=== PATIENT | female | born 1985 ===

== ENCOUNTER 2018-09-05 13:49 | Inpatient (IN) | payer OTHER ==
[2018-09-05] MEDS ORDERED: NACL 0.9% 1000 ML 1,000 ML IV ONE ×2 (14:12→18:11)
[2018-09-05] MEDS ORDERED: ZOFRAN IV ONE (14:12)
[2018-09-05] MEDS ORDERED: ANTIVERT PO ONE (14:41)
--- NOTE | 2018-09-05 14:43 | Emergency Department Report ---
HPI <NORAJeffJOSE Jaleesa - Last Filed: 09/05/18 23:14> - HPI HPI: 32-year-old female presents to the emergency department via EMS from home with a complaint of dizziness, nausea and vomiting that started earlier this morning. She denies any vision change, slurred speech, chest pain, shortness of breath, fever. She denies any significant past medical history. She received 4 mg of Zofran in route with EMS but otherwise did not take anything for her symptoms prior to arrival. She says that the dizziness is more like a vertigo-type symptom with the room spinning. No recent travel or sick contacts at home. <KRISTEN LUNA S - Last Filed: 09/06/18 15:57> - General Chief Complaint: Nausea/Vomiting/Diarrhea Time Seen by Provider: 09/05/18 14:06 ED Past Medical Hx <JOSE REMY Jaleesa - Last Filed: 09/05/18 23:14> - Surgical History Additional Surgical History: x2 - Social History Smoking Status: Never Smoker Substance Use Type: None <KRISTEN LUNA Kerrie - Last Filed: 09/06/18 15:57> - Medications Home Medications: Home Medications Medication Instructions Recorded Confirmed Last Taken Type No Known Home Medications [No 09/06/18 09/06/18 Unknown History Reported Home Medications] ED Review of Systems ROS: Stated complaint: DIZZY/VOMITING Other details as noted in HPI <JOSE REMY Jaleesa - Last Filed: 09/05/18 23:14> ROS: Stated complaint: DIZZY/VOMITING Other details as noted in HPI Comment: All other systems reviewed and negative Constitutional: denies: chills, fever Eyes: denies: eye pain, eye discharge, vision change ENT: denies: ear pain, throat pain Respiratory: denies: cough, shortness of breath, wheezing Cardiovascular: denies: chest pain, palpitations Gastrointestinal: nausea, vomiting. denies: abdominal pain, diarrhea Genitourinary: denies: urgency, dysuria, discharge Musculoskeletal: denies: back pain, arthralgia Skin: denies: rash, lesions Neurological: vertigo, other (dizziness). denies: weakness <KRISTEN LUNA S - Last Filed: 09/06/18 15:57> Physical Exam - Physical Exam Vital Signs: Vital Signs 1009/05/18 09/05/18 14:11 15:01 16:31 Temperature 97.8 F Pulse Rate 76 85 72 Respiratory 20 16 18 Rate Blood Pressure 156/70 Blood Pressure 159/92 133/68 [Right] O2 Sat by Pulse 99 100 100 Oximetry 09/05/18 09/05/18 09/05/18 16:52 16:54 16:56 Temperature Pulse Rate Respiratory Rate Blood Pressure 133/68 133/68 133/68 Blood Pressure [Right] O2 Sat by Pulse 100 100 99 Oximetry 09/05/18 09/05/18 09/05/18 16:58 17:00 17:01 Temperature Pulse Rate Respiratory Rate Blood Pressure 133/68 133/68 153/83 Blood Pressure [Right] O2 Sat by Pulse 100 100 100 Oximetry 09/05/18 09/05/18 09/05/18 17:02 17:04 17:06 Temperature Pulse Rate Respiratory Rate Blood Pressure 153/83 153/83 153/83 Blood Pressure [Right] O2 Sat by Pulse 100 100 100 Oximetry 09/05/18 09/05/18 09/05/18 17:08 17:10 17:12 Temperature Pulse Rate Respiratory Rate Blood Pressure 153/83 153/83 153/83 Blood Pressure [Right] O2 Sat by Pulse 100 100 100 Oximetry 09/05/18 09/05/18 09/05/18 17:14 17:16 17:18 Temperature Pulse Rate Respiratory Rate Blood Pressure 153/83 153/83 153/83 Blood Pressure [Right] O2 Sat by Pulse 100 100 100 Oximetry 09/05/18 09/05/18 09/05/18 17:20 17:22 17:24 Temperature Pulse Rate Respiratory Rate Blood Pressure 153/83 153/83 153/83 Blood Pressure [Right] O2 Sat by Pulse 100 100 100 Oximetry 09/05/18 09/05/18 09/05/18 17:26 17:28 17:30 Temperature Pulse Rate Respiratory Rate Blood Pressure 153/83 153/83 153/83 Blood Pressure [Right] O2 Sat by Pulse 100 100 100 Oximetry 09/05/18 09/05/18 09/05/18 17:31 17:32 17:34 Temperature Pulse Rate 63 Respiratory 18 Rate Blood Pressure 163/75 163/75 163/75 Blood Pressure 165/75 [Right] O2 Sat by Pulse 100 99 100 Oximetry 09/05/18 09/05/18 09/05/18 17:36 17:38 17:40 Temperature Pulse Rate Respiratory Rate Blood Pressure 163/75 163/75 163/75 Blood Pressure [Right] O2 Sat by Pulse 100 100 100 Oximetry 09/05/18 09/05/18 09/05/18 17:42 17:44 17:46 Temperature Pulse Rate Respiratory Rate Blood Pressure 163/75 163/75 163/75 Blood Pressure [Right] O2 Sat by Pulse 100 97 100 Oximetry 09/05/18 09/05/18 09/05/18 17:48 17:50 17:52 Temperature Pulse Rate Respiratory Rate Blood Pressure 163/75 163/75 163/75 Blood Pressure [Right] O2 Sat by Pulse 100 100 100 Oximetry 09/05/18 09/05/18 09/05/18 17:54 18:56 18:58 Temperature Pulse Rate 61 Respiratory 18 Rate Blood Pressure 163/75 163/75 137/67 Blood Pressure 136/67 [Right] O2 Sat by Pulse 100 100 100 Oximetry 09/05/18 09/05/18 09/05/18 19:00 19:01 19:02 Temperature Pulse Rate Respiratory Rate Blood Pressure 137/67 130/65 130/65 Blood Pressure [Right] O2 Sat by Pulse 100 100 99 Oximetry 09/05/18 09/05/18 09/05/18 19:04 19:06 19:08 Temperature Pulse Rate Respiratory Rate Blood Pressure 130/65 130/65 130/65 Blood Pressure [Right] O2 Sat by Pulse 100 100 100 Oximetry 09/05/18 09/05/18 09/05/18 19:10 19:12 19:14 Temperature Pulse Rate Respiratory Rate Blood Pressure 130/65 130/65 163/75 Blood Pressure [Right] O2 Sat by Pulse 100 100 100 Oximetry <JOSE REMY K - Last Filed: 09/05/18 23:14> - Physical Exam Vital Signs: Vital Signs 09/05/18 14:11 Temperature 97.8 F Pulse Rate 76 Respiratory 20 Rate Blood Pressure 156/70 O2 Sat by Pulse 99 Oximetry Physical Exam: GENERAL: The patient is well-developed well-nourished. HEENT: Normocephalic. Atraumatic. Patient has moist mucous membranes. EYES: Extraocular motions are intact. Pupils are equal and reactive to light bilaterally. Patient has significant horizontal nystagmus. It appears sustained towards the right but fatigable to the left. NECK: Supple. Trachea is midline. CHEST/LUNGS: Clear to auscultation. There is no respiratory distress noted. HEART/CARDIOVASCULAR: Regular. There is no tachycardia. There is no gallop rub or murmur. ABDOMEN: Abdomen is soft, nontender. Patient has normal bowel sounds. There is no abdominal distention. SKIN: Skin is warm and dry. NEURO: The patient is awake, alert, and oriented. The patient is cooperative. The patient has no focal neurologic deficits. The patient has normal speech. Cranial nerves II through XII grossly intact. MUSCULOSKELETAL: There is no tenderness or deformity. There is no limitation range of motion. There is no evidence of acute injury. <KRISTEN LUNA S - Last Filed: 09/06/18 15:57> ED Course Vital Signs 09/05/18 09/05/18 09/05/18 14:11 15:01 16:31 Temperature 97.8 F Pulse Rate 76 85 72 Respiratory 20 16 18 Rate Blood Pressure 156/70 Blood Pressure 159/92 133/68 [Right] O2 Sat by Pulse 99 100 100 Oximetry 09/05/18 09/05/18 09/05/18 16:52 16:54 16:56 Temperature Pulse Rate Respiratory Rate Blood Pressure 133/68 133/68 133/68 Blood Pressure [Right] O2 Sat by Pulse 100 100 99 Oximetry 09/05/18 09/05/18 09/05/18 16:58 17:00 17:01 Temperature Pulse Rate Respiratory Rate Blood Pressure 133/68 133/68 153/83 Blood Pressure [Right] O2 Sat by Pulse 100 100 100 Oximetry 09/05/18 09/05/18 09/05/18 17:02 17:04 17:06 Temperature Pulse Rate Respiratory Rate Blood Pressure 153/83 153/83 153/83 Blood Pressure [Right] O2 Sat by Pulse 100 100 100 Oximetry 09/05/18 09/05/18 09/05/18 17:08 17:10 17:12 Temperature Pulse Rate Respiratory Rate Blood Pressure 153/83 153/83 153/83 Blood Pressure [Right] O2 Sat by Pulse 100 100 100 Oximetry 09/05/18 09/05/18 09/05/18 17:14 17:16 17:18 Temperature Pulse Rate Respiratory Rate Blood Pressure 153/83 153/83 153/83 Blood Pressure [Right] O2 Sat by Pulse 100 100 100 Oximetry 09/05/18 09/05/18 09/05/18 17:20 17:22 17:24 Temperature Pulse Rate Respiratory Rate Blood Pressure 153/83 153/83 153/83 Blood Pressure [Right] O2 Sat by Pulse 100 100 100 Oximetry 09/05/18 09/05/18 09/05/18 17:26 17:28 17:30 Temperature Pulse Rate Respiratory Rate Blood Pressure 153/83 153/83 153/83 Blood Pressure [Right] O2 Sat by Pulse 100 100 100 Oximetry 09/05/18 09/05/18 09/05/18 17:31 17:32 17:34 Temperature Pulse Rate 63 Respiratory 18 Rate Blood Pressure 163/75 163/75 163/75 Blood Pressure 165/75 [Right] O2 Sat by Pulse 100 99 100 Oximetry 09/05/18 09/05/18 09/05/18 17:36 17:38 17:40 Temperature Pulse Rate Respiratory Rate Blood Pressure 163/75 163/75 163/75 Blood Pressure [Right] O2 Sat by Pulse 100 100 100 Oximetry 09/05/18 09/05/18 09/05/18 17:42 17:44 17:46 Temperature Pulse Rate Respiratory Rate Blood Pressure 163/75 163/75 163/75 Blood Pressure [Right] O2 Sat by Pulse 100 97 100 Oximetry 09/05/18 09/05/18 09/05/18 17:48 17:50 17:52 Temperature Pulse Rate Respiratory Rate Blood Pressure 163/75 163/75 163/75 Blood Pressure [Right] O2 Sat by Pulse 100 100 100 Oximetry 09/05/18 09/05/18 09/05/18 17:54 18:56 18:58 Temperature Pulse Rate 61 Respiratory 18 Rate Blood Pressure 163/75 163/75 137/67 Blood Pressure 136/67 [Right] O2 Sat by Pulse 100 100 100 Oximetry 09/05/18 09/05/18 09/05/18 19:00 19:01 19:02 Temperature Pulse Rate Respiratory Rate Blood Pressure 137/67 130/65 130/65 Blood Pressure [Right] O2 Sat by Pulse 100 100 99 Oximetry 09/05/18 09/05/18 09/05/18 19:04 19:06 19:08 Temperature Pulse Rate Respiratory Rate Blood Pressure 130/65 130/65 130/65 Blood Pressure [Right] O2 Sat by Pulse 100 100 100 Oximetry 09/05/18 09/05/18 09/05/18 19:10 19:12 19:14 Temperature Pulse Rate Respiratory Rate Blood Pressure 130/65 130/65 163/75 Blood Pressure [Right] O2 Sat by Pulse 100 100 100 Oximetry <JOSE REMY - Last Filed: 09/05/18 23:14> Vital Signs 09/05/18 14:11 Temperature 97.8 F Pulse Rate 76 Respiratory 20 Rate Blood Pressure 156/70 O2 Sat by Pulse 99 Oximetry <KRISTEN LUNA - Last Filed: 09/06/18 15:57> ED Medical Decision Making - Lab Data Result diagrams: 09/05/18 14:38 09/05/18 14:38 - Radiology Data Radiology results: report reviewed (CT angiogram neck, CT angiogram brain) [facility] [address] [place] [address] Cat Scan Report Signed Patient: NAZ KILPATRICK MR#: [id number] : 1985 Acct:[id number] Age/Sex: 32 / F ADM Date: 09/05/18 Loc: ED Attending Dr: Ordering Physician: KRISTEN LUNA DO Date of Service: 09/05/18 Procedure(s): CT angio neck Accession Number(s): [id number] cc: KRISTEN LUNA DO FINAL REPORT PROCEDURE: CT ANGIO NECK TECHNIQUE: Computerized tomographic angiography of the neck was performed after the IV injection of iodinated nonionic contrast including image processing. The image data was postprocessed using 2-dimensional multiplanar reformatted (MPR) and 3-dimensional (MIP and/or volume rendered) techniques. HISTORY: Dizziness, sustained vertigo and nystagmus COMPARISON: No prior studies are available for comparison. Note: Assessment of carotid artery stenosis is based on measurement of the distal internal carotid artery diameter as the denominator for stenosis calculations and the [place] Symptomatic Carotid Endarterectomy Trial (NASCET) stenosis criteria . CPT 3100F FINDINGS: Vertebral arteries bilaterally are widely patent. The common carotid arteries the carotid bulbs and internal carotid arteries are also widely patent. There is no stenosis, dissection or occlusion. Complex nodule seen in the left lobe of the thyroid gland measuring 1.5 x 1.9 centimeter. The density appears to represent a cyst with small internal nodules. IMPRESSION: Vertebral arteries and carotid arteries are widely patent without focal abnormality. Complex nodule left lobe of the thyroid gland. Thyroid ultrasound suggested for further characterization. Etiology is uncertain. Transcribed By: JANNET Dictated By: BARAK VERGARA MD Electronically Authenticated By: BARAK VERGARA MD Signed Date/Time: 09/05/182303 DD/ 03 TD/TT: 09/05/182303 [facility] [address] [place] [address] Cat Scan Report Signed Patient: NAZ KILPATRICK MR#: [id number] : 1985 Acct:[id number] Age/Sex: 32 / F ADM Date: 09/05/18 Loc: ED Attending Dr: Ordering Physician: KRISTEN LUNA DO Date of Service: 09/05/18 Procedure(s): CT angio head Accession Number(s): [id number] cc: KRISTEN LUNA DO FINAL REPORT PROCEDURE: CT ANGIO HEAD TECHNIQUE: Computerized tomographic angiography of the head was performed during the IV injection of iodinated nonionic contrast including image processing. The image data was postprocessed using 2-dimensional multiplanar reformatted (MPR) and 3-dimensional (MIP and/or volume rendered) techniques. HISTORY: Dizziness, sustained vertigo and nystagmus COMPARISON: No prior studies are available for comparison. FINDINGS: Visualized internal carotid arteries appear widely patent. The carotid siphons also appear widely patent. The A1 segments and anterior cerebral arteries show no abnormalities. The middle cerebral arteries appear widely patent and are unremarkable. Visualized vertebral arteries are widely patent as is the basilar artery. Both posterior cerebral arteries are widely patent. There is persistent circulation of the right posterior cerebral artery, normal variant. No abnormal areas of enhancement are seen. No changes are seen that would suggest aneurysm or vascular malformation. IMPRESSION: Negative exam. The anterior and the posterior circulation are intact and show no focal abnormalities. Transcribed By: JANNET Dictated By: BARAK VERGARA MD Electronically Authenticated By: BARAK VERGARA MD Signed Date/Time: 09/05/182258 DD/ 58 TD/TT: 09/05/182258 <JOSE REMY - Last Filed: 09/05/18 23:14> - Lab Data Result diagrams: 09/06/18 04:45 09/06/18 04:45 - EKG Data -: EKG Interpreted by Me EKG shows normal: sinus rhythm, axis (borderline left axis deviation), intervals , QRS complexes (Q waves to the anterior leads), ST-T waves Rate: normal - EKG Data When compared to previous EKG there are: previous EKG unavailable Interpretation: other (sinus rhythm, Q waves to the anterior leads) - Medical Decision Making This patient originally came with complaint of dizziness that is vertigo symptoms along with nausea and vomiting that started in the morning. The patient was given multiple doses of antiemetics, some IV fluid. I tried to give oral Antivert but the patient vomited it up. I then gave her IV Benadryl. The patient had some improvement and I was able to do a full NIH stroke scale which came back it is 0. However the patient did not have complete resolution of her vertigo and continues to have sustained nystagmus to the right. CT angiography of the head and neck was done to try and rule out atypical posterior CVA in these resulted as negative for any type of occlusion or obvious thrombus. The patient will then be admitted to the hospital for further evaluation and possible MRI. All the labs and imaging results were discussed with the patient and she understands and agrees to plan. - Differential Diagnosis benign positional vertigo, posterior CVA, labyrinthitis, Mnire's disease <KRISTEN LUNA S - Last Filed: 09/06/18 15:57> Critical care attestation.: If time is entered above; I have spent that time in minutes in the direct care of this critically ill patient, excluding procedure time. <JOSE REMY - Last Filed: 09/05/18 23:14> Critical Care Time: No Critical care attestation.: If time is entered above; I have spent that time in minutes in the direct care of this critically ill patient, excluding procedure time. <KRISTEN LUNA S - Last Filed: 09/06/18 15:57> ED Disposition Time of Disposition: 23:14 (hospitalist paged (Dr. Paola Freeman)) <JOSE REMY - Last Filed: 09/05/18 23:14> Is pt being admited?: Yes <KRISTEN LUNA S - Last Filed: 09/06/18 15:57> Clinical Impression: Vertigo, Dizziness Intractable nausea and vomiting Qualifiers: Vomiting type: unspecified Qualified Code(s): R11.2 - Nausea with vomiting, unspecified Disposition: DC-09 OP ADMIT IP TO THIS HOSP Condition: Fair - Assessment Assessment Interval: Baseline - Level of Consciousness 1a. Level of Consciousness: alert/keenly responsive - LOC Questions 1b. LOC Questions: answers both correctly - LOC Command 1c. LOC Commands: performs tasks correctly - Best Gaze 2. Best Gaze: normal - Visual 3. Visual: no visual loss - Facial Palsy 4. Facial Palsy: normal symmetrical movement - Motor Arm 5b. Motor Arm Right: no drift 5a. Motor Arm Left: no drift - Motor Leg 6a. Motor Leg Left: no drift 6b. Motor Leg Right: no drift - Limb Ataxia 7. Limb Ataxia: absent - Sensory 8. Sensory: normal - Best Language 9. Best Language: no aphasia - Dysarthria 10. Dysarthria: normal - Extinction and Inattention 11. Extinction/Inattention: no abnormality - Scoring Total Score: 0 Stroke Severity: No Stroke Symptoms <KRISTEN LUNA S - Last Filed: 09/06/18 15:57>
[2018-09-05 14:57] LABS: Basophils % (Auto) 0.4 % (0.0-1.8); Eosinophils % (Auto) 0.1 % (0.0-4.3); Hematocrit 39.7 % (30.3-42.9); Hemoglobin 13.3 gm/dl (10.1-14.3); Lymphocytes % (Auto) 8.4 % (13.4-35.0); Mean Corpuscular HGB Conc 33 % (30-34); Mean Corpuscular Hemoglobin 29 pg (28-32); Mean Corpuscular Volume 88 fl (79-97); Monocytes # (Auto) 0.3 K/mm3 (0.0-0.8); Monocytes % (Auto) 2.1 % (0.0-7.3); Platelet Count 264 K/mm3 (140-440); Red Blood Count 4.52 M/mm3 (3.65-5.03); Red Cell Distribution Width 13.6 % (13.2-15.2)
[2018-09-05 15:16] LABS: Alanine Aminotransferase 17 units/L (7-56); Albumin 4.2 g/dL (3.9-5); BUN/Creatinine Ratio 30; Bilirubin,Direct < 0.2 mg/dL (0-0.2); Blood Urea Nitrogen 15 mg/dL (7-17); Calcium 8.8 mg/dL (8.4-10.2); Hemolysis Index 19; Lipase 14 units/L (13-60)
[2018-09-05] MEDS ORDERED: BENADRYL IV ONE (16:47)
[2018-09-05] MEDS ORDERED: REGLAN IV ONE (16:47)
[2018-09-05 17:03] LABS: Bilirubin,Urine NEG (Negative); Blood,Urine SM (Negative); Color,Urine Yellow (Yellow); Mucus,Urine FEW /HPF; Protein,Urine <15 mg/dL mg/dL (Negative); Urobilinogen,Urine < 2.0 mg/dL (<2.0)
--- NOTE | 2018-09-05 19:11 | Cat Scan Report ---
FINAL REPORT PROCEDURE: CT HEAD/BRAIN WO CON TECHNIQUE: Computerized tomography of the head was performed without contrast material. HISTORY: Dizziness COMPARISON: No prior studies are available for comparison. FINDINGS: Brain: Brain density appears normal. No evidence of intracranial hemorrhage. No parenchymal hemorrhage, mass lesions or mass effect are seen. No abnormal extraxial fluid collects or masses are seen. Ventricles: Ventricles are normal size and are midline. Bone Windows: No evidence of skull fracture. There are multiple subcutaneous nodules visualized anteriorly and superiorly in the scalp. These measure up to 13.6 millimeters. These appear to be partially calcified and may represent partially calcified sebaceous cyst. Other cutaneous nodules not entirely excluded. Paranasal sinuses: Visualized portions are clear. Mastoid air cells: Clear IMPRESSION: Negative unenhanced CT of the brain. Multiple nonspecific subcutaneous nodules as described above.
--- NOTE | 2018-09-05 23:00 | Cat Scan Report ---
FINAL REPORT PROCEDURE: CT ANGIO HEAD TECHNIQUE: Computerized tomographic angiography of the head was performed during the IV injection of iodinated nonionic contrast including image processing. The image data was postprocessed using 2-dimensional multiplanar reformatted (MPR) and 3-dimensional (MIP and/or volume rendered) techniques. HISTORY: Dizziness, sustained vertigo and nystagmus COMPARISON: No prior studies are available for comparison. FINDINGS: Visualized internal carotid arteries appear widely patent. The carotid siphons also appear widely patent. The A1 segments and anterior cerebral arteries show no abnormalities. The middle cerebral arteries appear widely patent and are unremarkable. Visualized vertebral arteries are widely patent as is the basilar artery. Both posterior cerebral arteries are widely patent. There is persistent circulation of the right posterior cerebral artery, normal variant. No abnormal areas of enhancement are seen. No changes are seen that would suggest aneurysm or vascular malformation. IMPRESSION: Negative exam. The anterior and the posterior circulation are intact and show no focal abnormalities.
--- NOTE | 2018-09-05 23:04 | Cat Scan Report ---
FINAL REPORT PROCEDURE: CT ANGIO NECK TECHNIQUE: Computerized tomographic angiography of the neck was performed after the IV injection of iodinated nonionic contrast including image processing. The image data was postprocessed using 2-dimensional multiplanar reformatted (MPR) and 3-dimensional (MIP and/or volume rendered) techniques. HISTORY: Dizziness, sustained vertigo and nystagmus COMPARISON: No prior studies are available for comparison. Note: Assessment of carotid artery stenosis is based on measurement of the distal internal carotid artery diameter as the denominator for stenosis calculations and the [place] Symptomatic Carotid Endarterectomy Trial (NASCET) stenosis criteria . CPT 3100F FINDINGS: Vertebral arteries bilaterally are widely patent. The common carotid arteries the carotid bulbs and internal carotid arteries are also widely patent. There is no stenosis, dissection or occlusion. Complex nodule seen in the left lobe of the thyroid gland measuring 1.5 x 1.9 centimeter. The density appears to represent a cyst with small internal nodules. IMPRESSION: Vertebral arteries and carotid arteries are widely patent without focal abnormality. Complex nodule left lobe of the thyroid gland. Thyroid ultrasound suggested for further characterization. Etiology is uncertain.
--- NOTE | 2018-09-06 | History and Physical Report ---
<MAYA CLARKE - Last Filed: 09/06/18 04:37> History of Present Illness Date of admission: 09/05/18 23:59 Medications and Allergies Allergies Allergy/AdvReac Type Severity Reaction Status Date / Time No Known Allergies Allergy Unverified 09/05/18 14:16 Home Medications Medication Instructions Recorded Confirmed Last Taken Type No Known Home Medications [No 09/06/18 09/06/18 Unknown History Reported Home Medications] Active Meds: Active Medications Acetaminophen (Tylenol) 650 mg PO Q4H PRN PRN Reason: Pain MILD(1-3)/Fever >100.5/KELLER Enoxaparin Sodium (Lovenox) 40 mg SUB-Q QDAY [facility] Sodium Chloride (Nacl 0.45% 1000 Ml) 1,000 mls @ 75 mls/hr IV DIRECT [facility] Meclizine HCl (Antivert) 25 mg PO Q8H PRN PRN Reason: Vertigo Ondansetron HCl (Zofran) 4 mg IV Q8H PRN PRN Reason: Nausea And Vomiting Sodium Chloride (Sodium Chloride Flush Syringe 10 Ml) 10 ml IV BID [facility] Sodium Chloride (Sodium Chloride Flush Syringe 10 Ml) 10 ml IV PRN PRN PRN Reason: LINE FLUSH Exam - Constitutional Vitals: Temp Pulse Resp BP Pulse Ox 98.9 F 60 18 137/77 100 09/06/18 03:01 09/06/18 03:02 09/06/18 03:01 09/06/18 03:01 09/06/18 03:02 Results - Labs CBC & Chem 7: 09/05/18 14:38 09/05/18 14:38 Labs: Laboratory Last Values WBC 12.5 K/mm3 (4.5-11.0) H 09/05/18 14:38 RBC 4.52 M/mm3 (3.65-5.03) 09/05/18 14:38 Hgb 13.3 gm/dl (10.1-14.3) 09/05/18 14:38 Hct 39.7 % (30.3-42.9) 09/05/18 14:38 MCV 88 fl (79-97) 09/05/18 14:38 MCH 29 pg (28-32) 09/05/18 14:38 MCHC 33 % (30-34) 09/05/18 14:38 RDW 13.6 % (13.2-15.2) 09/05/18 14:38 Plt Count 264 K/mm3 (140-440) 09/05/18 14:38 Lymph % (Auto) 8.4 % (13.4-35.0) L 09/05/18 14:38 Ceiba % (Auto) 2.1 % (0.0-7.3) 09/05/18 14:38 Eos % (Auto) 0.1 % (0.0-4.3) 09/05/18 14:38 Baso % (Auto) 0.4 % (0.0-1.8) 09/05/18 14:38 Lymph # 1.0 K/mm3 (1.2-5.4) L 09/05/18 14:38 [place] # 0.3 K/mm3 (0.0-0.8) 09/05/18 14:38 Eos # 0.0 K/mm3 (0.0-0.4) 09/05/18 14:38 Baso # 0.0 K/mm3 (0.0-0.1) 09/05/18 14:38 Seg Neutrophils % 89.0 % (40.0-70.0) H 09/05/18 14:38 Seg Neutrophils # 11.1 K/mm3 (1.8-7.7) H 09/05/18 14:38 Sodium 136 mmol/L (137-145) L 09/05/18 14:38 Potassium 4.0 mmol/L (3.6-5.0) 09/05/18 14:38 Chloride 104.9 mmol/L (98-107) 09/05/18 14:38 Carbon Dioxide 19 mmol/L (22-30) L 09/05/18 14:38 Anion Gap 16 mmol/L 09/05/18 14:38 BUN 15 mg/dL (7-17) 09/05/18 14:38 Creatinine 0.5 mg/dL (0.7-1.2) L 09/05/18 14:38 Estimated GFR > 60 ml/min 09/05/18 14:38 BUN/Creatinine Ratio 30 % 09/05/18 14:38 Glucose 136 mg/dL (65-100) H 09/05/18 14:38 Calcium 8.8 mg/dL (8.4-10.2) 09/05/18 14:38 Total Bilirubin 0.30 mg/dL (0.1-1.2) 09/05/18 14:38 Direct Bilirubin < 0.2 mg/dL (0-0.2) 09/05/18 14:38 Indirect Bilirubin 0.1 mg/dL 09/05/18 14:38 AST 17 units/L (5-40) 09/05/18 14:38 ALT 17 units/L (7-56) 09/05/18 14:38 Alkaline Phosphatase 42 units/L (35-129) 09/05/18 14:38 Total Protein 7.5 g/dL (6.3-8.2) 09/05/18 14:38 Albumin 4.2 g/dL (3.9-5) 09/05/18 14:38 Albumin/Globulin Ratio 1.3 % 09/05/18 14:38 Lipase 14 units/L (13-60) 09/05/18 14:38 TSH 1.920 mlU/mL (0.270-4.200) 09/05/18 14:38 HCG, Qual Negative (Negative) 09/05/18 14:38 Urine Color Yellow (Yellow) 09/05/18 15:51 Urine Turbidity Clear (Clear) 09/05/18 15:51 Urine pH 5.0 (5.0-7.0) 09/05/18 15:51 Ur Specific [place] 1.014 (1.003-1.030) 09/05/18 15:51 Urine Protein <15 mg/dl mg/dL (Negative) 09/05/18 15:51 Urine Glucose (UA) Neg mg/dL (Negative) 09/05/18 15:51 Urine Ketones 20 mg/dL (Negative) 09/05/18 15:51 Urine Blood Sm (Negative) 09/05/18 15:51 Urine Nitrite Neg (Negative) 09/05/18 15:51 Urine Bilirubin Neg (Negative) 09/05/18 15:51 Urine Urobilinogen < 2.0 mg/dL (<2.0) 09/05/18 15:51 Ur Leukocyte Esterase Neg (Negative) 09/05/18 15:51 Urine WBC (Auto) 1.0 /HPF (0.0-6.0) 09/05/18 15:51 Urine RBC (Auto) 3.0 /HPF (0.0-6.0) 09/05/18 15:51 U Epithel Cells (Auto) 1.0 /HPF (0-13.0) 09/05/18 15:51 Urine Mucus Few /HPF 09/05/18 15:51 Assessment and Plan Assessment and plan: Patient seen and examined with nurse practitioner, agree with the above plan, in addition start meclizine, IV fluids <VAUGHN QUINONEZ - Last Filed: 09/06/18 05:34> History of Present Illness Date of examination: 09/05/18 Date of admission: 09/05/18 Chief complaint: vomiting and vertigo History of present illness: Pt is a 32 y.o. female with no PMHx except for induce hypertension, obesity who presents to the ER via EMS from home with a complaint of dizziness, nausea and vomiting that started earlier this morning. Pt states that she woke up in the morning and have breakfast and right after she started to feel dizzy and started to throw up profusely and she felt like the room is spinning with her. Pt states that she throw up several time, and each time is clear emesis with no visible blood or change in color. Pt denies any indigestion, her last meal was home made and no one in the family is sick, she denies any recent travelling or sick contacts at home. She denies any vision changes, denies slurred speech, denies chest pain, denies headache, denies SOB, denies fever. In the ER she had a CT of the brain that was WNL, PE was normal except for vertical nystagmus on eye exam. Pt was admitted for further evaluation. Past History Past Medical History: other ( induce hypertension) Past Surgical History: (x2) Social history: lives with family Family history: no significant family history Review of Systems Ears, nose, mouth and throat: other (minor left ear discomfort) Breasts: deferred Gastrointestinal: nausea, vomiting Neurological: vertigo Exam - Constitutional Vitals: Temp Pulse Resp BP Pulse Ox 97.8 F 61 18 163/75 100 09/05/18 14:11 09/05/18 18:58 09/05/18 18:58 09/05/18 19:14 09/05/18 19:14 General appearance: Present: no acute distress - EENT Eyes: Present: exopthalmos (vertical nystagmus noted) ENT: hearing intact - Neck Neck: Present: normal ROM - Respiratory Respiratory effort: normal Respiratory: bilateral: CTA - Cardiovascular Rhythm: regular - Extremities Extremities: no ischemia, No edema Peripheral Pulses: within normal limits - Abdominal General gastrointestinal: Present: non-tender, non-distended, normal bowel sounds Female genitourinary: Present: deferred - Integumentary Integumentary: Present: warm, dry - Musculoskeletal Musculoskeletal: strength equal bilaterally - Psychiatric Psychiatric: appropriate mood/affect, cooperative - Neurologic Neurologic: moves all extremities Results - Labs CBC & Chem 7: 09/05/18 14:38 09/05/18 14:38 Labs: Laboratory Last Values WBC 12.5 K/mm3 (4.5-11.0) H 09/05/18 14:38 RBC 4.52 M/mm3 (3.65-5.03) 09/05/18 14:38 Hgb 13.3 gm/dl (10.1-14.3) 09/05/18 14:38 Hct 39.7 % (30.3-42.9) 09/05/18 14:38 MCV 88 fl (79-97) 09/05/18 14:38 MCH 29 pg (28-32) 09/05/18 14:38 MCHC 33 % (30-34) 09/05/18 14:38 RDW 13.6 % (13.2-15.2) 09/05/18 14:38 Plt Count 264 K/mm3 (140-440) 09/05/18 14:38 Lymph % (Auto) 8.4 % (13.4-35.0) L 09/05/18 14:38 Ceiba % (Auto) 2.1 % (0.0-7.3) 09/05/18 14:38 Eos % (Auto) 0.1 % (0.0-4.3) 09/05/18 14:38 Baso % (Auto) 0.4 % (0.0-1.8) 09/05/18 14:38 Lymph # 1.0 K/mm3 (1.2-5.4) L 09/05/18 14:38 [place] # 0.3 K/mm3 (0.0-0.8) 09/05/18 14:38 Eos # 0.0 K/mm3 (0.0-0.4) 09/05/18 14:38 Baso # 0.0 K/mm3 (0.0-0.1) 09/05/18 14:38 Seg Neutrophils % 89.0 % (40.0-70.0) H 09/05/18 14:38 Seg Neutrophils # 11.1 K/mm3 (1.8-7.7) H 09/05/18 14:38 Sodium 136 mmol/L (137-145) L 09/05/18 14:38 Potassium 4.0 mmol/L (3.6-5.0) 09/05/18 14:38 Chloride 104.9 mmol/L (98-107) 09/05/18 14:38 Carbon Dioxide 19 mmol/L (22-30) L 09/05/18 14:38 Anion Gap 16 mmol/L 09/05/18 14:38 BUN 15 mg/dL (7-17) 09/05/18 14:38 Creatinine 0.5 mg/dL (0.7-1.2) L 09/05/18 14:38 Estimated GFR > 60 ml/min 09/05/18 14:38 BUN/Creatinine Ratio 30 % 09/05/18 14:38 Glucose 136 mg/dL (65-100) H 09/05/18 14:38 Calcium 8.8 mg/dL (8.4-10.2) 09/05/18 14:38 Total Bilirubin 0.30 mg/dL (0.1-1.2) 09/05/18 14:38 Direct Bilirubin < 0.2 mg/dL (0-0.2) 09/05/18 14:38 Indirect Bilirubin 0.1 mg/dL 09/05/18 14:38 AST 17 units/L (5-40) 09/05/18 14:38 ALT 17 units/L (7-56) 09/05/18 14:38 Alkaline Phosphatase 42 units/L (35-129) 09/05/18 14:38 Total Protein 7.5 g/dL (6.3-8.2) 09/05/18 14:38 Albumin 4.2 g/dL (3.9-5) 09/05/18 14:38 Albumin/Globulin Ratio 1.3 % 09/05/18 14:38 Lipase 14 units/L (13-60) 09/05/18 14:38 TSH 1.920 mlU/mL (0.270-4.200) 09/05/18 14:38 HCG, Qual Negative (Negative) 09/05/18 14:38 Urine Color Yellow (Yellow) 09/05/18 15:51 Urine Turbidity Clear (Clear) 09/05/18 15:51 Urine pH 5.0 (5.0-7.0) 09/05/18 15:51 Ur Specific [place] 1.014 (1.003-1.030) 09/05/18 15:51 Urine Protein <15 mg/dl mg/dL (Negative) 09/05/18 15:51 Urine Glucose (UA) Neg mg/dL (Negative) 09/05/18 15:51 Urine Ketones 20 mg/dL (Negative) 09/05/18 15:51 Urine Blood Sm (Negative) 09/05/18 15:51 Urine Nitrite Neg (Negative) 09/05/18 15:51 Urine Bilirubin Neg (Negative) 09/05/18 15:51 Urine Urobilinogen < 2.0 mg/dL (<2.0) 09/05/18 15:51 Ur Leukocyte Esterase Neg (Negative) 09/05/18 15:51 Urine WBC (Auto) 1.0 /HPF (0.0-6.0) 09/05/18 15:51 Urine RBC (Auto) 3.0 /HPF (0.0-6.0) 09/05/18 15:51 U Epithel Cells (Auto) 1.0 /HPF (0-13.0) 09/05/18 15:51 Urine Mucus Few /HPF 09/05/18 15:51 Assessment and Plan Assessment and plan: 32 year old female with no PMHx, no h/o drug use who presents with vertigo, n/v 1. Acute positional vertigo 2. N/V (unknown etiology) 3. Vertical nystagmus (etiology unclear) 4. Dehydration Plan Admit to [facility] for vertigo, n/v IVF for hydration Start Meclizine for dizziness Regular diet Zofran for n/v Awaiting MRI for eval SD for VTE prophylaxis Plan of care was d/w pt, voiced understanding Pt's condition and plan of care was d/w attending Advance Directives: Yes VTE prophylaxis?: Mechanical Plan of care discussed with patient/family: Yes
[2018-09-06] MEDS ORDERED: SODIUM CHLORIDE FLUSH SYRINGE 10 ML IV PRN (04:31)
[2018-09-06] MEDS ORDERED: TYLENOL PO PRN (04:31)
[2018-09-06] MEDS ORDERED: ZOFRAN IV PRN (04:31)
[2018-09-06 05:56] LABS: Basophils # (Auto) 0.1 K/mm3 (0.0-0.1); Basophils % (Auto) 0.6 % (0.0-1.8); Eosinophils # (Auto) 0.1 K/mm3 (0.0-0.4); Eosinophils % (Auto) 0.6 % (0.0-4.3); Hematocrit 36.1 % (30.3-42.9); Hemoglobin 12.2 gm/dl (10.1-14.3); Lymphocytes # (Auto) 2.2 K/mm3 (1.2-5.4); Lymphocytes % (Auto) 19.8 % (13.4-35.0); Mean Corpuscular HGB Conc 34 % (30-34); Mean Corpuscular Hemoglobin 30 pg (28-32); Mean Corpuscular Volume 88 fl (79-97); Monocytes # (Auto) 0.5 K/mm3 (0.0-0.8); Monocytes % (Auto) 4.5 % (0.0-7.3); Red Blood Count 4.13 M/mm3 (3.65-5.03); Red Cell Distribution Width 13.5 % (13.2-15.2)
[2018-09-06 06:22] LABS: BUN/Creatinine Ratio 18; Blood Urea Nitrogen 9 mg/dL (7-17); Calcium 8.4 mg/dL (8.4-10.2); Hemolysis Index 29
[2018-09-06 06:28] LABS: Platelet Count 256 K/mm3 (140-440)
[2018-09-06] MEDS: NACL 0.45% 1000 ML 1,000 ML IV SCH ×2 (07:12→22:43)
--- NOTE | 2018-09-06 09:21 | Progress Note ---
Assessment and Plan Assessment and plan: Benign positional vertigo. Continue meclizine daily. Follow-up MRI to rule out CVA. CT of the neck revealed vertebral arteries and carotid arteries widely patent without focal abnormality. Nausea and vomiting. Etiology secondary to above. Continue supportive care. Thyroid nodule. CT scan revealed complex nodule left lobe of the thyroid gland. Thyroid ultrasound. History Interval history: No new issues overnight. Hospitalist Physical - Constitutional Vitals: Temp Pulse Resp BP Pulse Ox 98.3 F 68 16 143/75 97 09/06/18 08:44 09/06/18 08:44 09/06/18 08:44 09/06/18 08:44 09/06/18 08:44 General appearance: Present: no acute distress - EENT Eyes: Present: PERRL, EOM intact ENT: hearing intact, clear oral mucosa, dentition normal - Neck Neck: Present: supple, normal ROM - Respiratory Respiratory effort: normal Respiratory: bilateral: CTA - Cardiovascular Rhythm: regular Heart Sounds: Present: S1 & S2. Absent: gallop, rub - Extremities Extremities: no ischemia, No edema, Full ROM - Abdominal General gastrointestinal: soft, non-tender, non-distended, normal bowel sounds - Integumentary Integumentary: Present: clear, warm, dry - Neurologic Neurologic: CNII-XII intact, moves all extremities Results - Labs CBC & Chem 7: 09/06/18 04:45 09/06/18 04:45 Labs: Laboratory Last Values WBC 10.9 K/mm3 (4.5-11.0) 09/06/18 04:45 RBC 4.13 M/mm3 (3.65-5.03) 09/06/18 04:45 Hgb 12.2 gm/dl (10.1-14.3) 09/06/18 04:45 Hct 36.1 % (30.3-42.9) 09/06/18 04:45 MCV 88 fl (79-97) 09/06/18 04:45 MCH 30 pg (28-32) 09/06/18 04:45 MCHC 34 % (30-34) 09/06/18 04:45 RDW 13.5 % (13.2-15.2) 09/06/18 04:45 Plt Count 256 K/mm3 (140-440) 09/06/18 04:45 Lymph % (Auto) 19.8 % (13.4-35.0) 09/06/18 04:45 [place] % (Auto) 4.5 % (0.0-7.3) 09/06/18 04:45 Eos % (Auto) 0.6 % (0.0-4.3) 09/06/18 04:45 Baso % (Auto) 0.6 % (0.0-1.8) 09/06/18 04:45 Lymph # 2.2 K/mm3 (1.2-5.4) 09/06/18 04:45 [place] # 0.5 K/mm3 (0.0-0.8) 09/06/18 04:45 Eos # 0.1 K/mm3 (0.0-0.4) 09/06/18 04:45 Baso # 0.1 K/mm3 (0.0-0.1) 09/06/18 04:45 Seg Neutrophils % 74.5 % (40.0-70.0) H 09/06/18 04:45 Seg Neutrophils # 8.1 K/mm3 (1.8-7.7) H 09/06/18 04:45 Sodium 141 mmol/L (137-145) 09/06/18 04:45 Potassium 4.4 mmol/L (3.6-5.0) 09/06/18 04:45 Chloride 107.4 mmol/L (98-107) H 09/06/18 04:45 Carbon Dioxide 21 mmol/L (22-30) L 09/06/18 04:45 Anion Gap 17 mmol/L 09/06/18 04:45 BUN 9 mg/dL (7-17) 09/06/18 04:45 Creatinine 0.5 mg/dL (0.7-1.2) L 09/06/18 04:45 Estimated GFR > 60 ml/min 09/06/18 04:45 BUN/Creatinine Ratio 18 % 09/06/18 04:45 Glucose 93 mg/dL (65-100) 09/06/18 04:45 Calcium 8.4 mg/dL (8.4-10.2) 09/06/18 04:45 Total Bilirubin 0.30 mg/dL (0.1-1.2) 09/05/18 14:38 Direct Bilirubin < 0.2 mg/dL (0-0.2) 09/05/18 14:38 Indirect Bilirubin 0.1 mg/dL 09/05/18 14:38 AST 17 units/L (5-40) 09/05/18 14:38 ALT 17 units/L (7-56) 09/05/18 14:38 Alkaline Phosphatase 42 units/L (35-129) 09/05/18 14:38 Total Protein 7.5 g/dL (6.3-8.2) 09/05/18 14:38 Albumin 4.2 g/dL (3.9-5) 09/05/18 14:38 Albumin/Globulin Ratio 1.3 % 09/05/18 14:38 Lipase 14 units/L (13-60) 09/05/18 14:38 TSH 1.920 mlU/mL (0.270-4.200) 09/05/18 14:38 HCG, Qual Negative (Negative) 09/05/18 14:38 Urine Color Yellow (Yellow) 09/05/18 15:51 Urine Turbidity Clear (Clear) 09/05/18 15:51 Urine pH 5.0 (5.0-7.0) 09/05/18 15:51 Ur Specific [place] 1.014 (1.003-1.030) 09/05/18 15:51 Urine Protein <15 mg/dl mg/dL (Negative) 09/05/18 15:51 Urine Glucose (UA) Neg mg/dL (Negative) 09/05/18 15:51 Urine Ketones 20 mg/dL (Negative) 09/05/18 15:51 Urine Blood Sm (Negative) 09/05/18 15:51 Urine Nitrite Neg (Negative) 09/05/18 15:51 Urine Bilirubin Neg (Negative) 09/05/18 15:51 Urine Urobilinogen < 2.0 mg/dL (<2.0) 09/05/18 15:51 Ur Leukocyte Esterase Neg (Negative) 09/05/18 15:51 Urine WBC (Auto) 1.0 /HPF (0.0-6.0) 09/05/18 15:51 Urine RBC (Auto) 3.0 /HPF (0.0-6.0) 09/05/18 15:51 U Epithel Cells (Auto) 1.0 /HPF (0-13.0) 09/05/18 15:51 Urine Mucus Few /HPF 09/05/18 15:51
[2018-09-06] MEDS: LOVENOX SUB-Q SCH (09:54)
[2018-09-06] MEDS: SODIUM CHLORIDE FLUSH SYRINGE 10 ML IV SCH ×2 (09:54→22:44)
--- NOTE | 2018-09-06 09:58 | Consultation ---
History of Present Illness Chief complaint: Vertigo, nausea and vomiting Past History Past Medical History: other ( induce hypertension) Past Surgical History: (x2) Social history: lives with family Family history: no significant family history Medications and Allergies Allergies Allergy/AdvReac Type Severity Reaction Status Date / Time No Known Allergies Allergy Unverified 09/05/18 14:16 Home Medications Medication Instructions Recorded Confirmed Last Taken Type No Known Home Medications [No 09/06/18 09/06/18 Unknown History Reported Home Medications] Active Meds: Active Medications Acetaminophen (Tylenol) 650 mg PO Q4H PRN PRN Reason: Pain MILD(1-3)/Fever >100.5/KELLER Enoxaparin Sodium (Lovenox) 40 mg SUB-Q QDAY [facility] Last Admin: 09/06/18 09:54 Dose: 40 mg Sodium Chloride (Nacl 0.45% 1000 Ml) 1,000 mls @ 75 mls/hr IV DIRECT [facility] Last Admin: 09/06/18 07:12 Dose: 75 mls/hr Meclizine HCl (Antivert) 25 mg PO Q8H PRN PRN Reason: Vertigo Ondansetron HCl (Zofran) 4 mg IV Q8H PRN PRN Reason: Nausea And Vomiting Sodium Chloride (Sodium Chloride Flush Syringe 10 Ml) [address] [facility] Last Admin: 09/06/18 09:54 Dose: 10 ml Sodium Chloride (Sodium Chloride Flush Syringe 10 Ml) 10 ml IV PRN PRN PRN Reason: LINE FLUSH Review of Systems Constitutional: no weight loss, no weight gain, no fever, no chills, no sweats, no night sweats, no anorexia, no fatigue, no weakness, no malaise, no lethargy, no chronic headaches, no poor appetite, no daytime sleepiness, no chronic pain, no other Eyes: bilateral: diplopia (no pain), decreased vision (none), loss of vision ( none) Ears, nose, mouth and throat: vertigo, no ear pain, no tinnitis, no decreased hearing, no nasal congestion, no nasal discharge, no hoarseness, no headache, no pain front of neck, no neck fullness/pressure Breasts: deferred Cardiovascular: lightheadedness, no chest pain, no orthopnea, no palpitations, no syncope, no high blood pressure Respiratory: no shortness of breath Neurological: ataxia, lack of coordination, vertigo, balance difficulties, gait dysfunction, double vision, no head injury, no transient paralysis, no paralysis , no weakness, no parathesias, no numbness, no tingling, no seizures, no syncope , no tremors, no headaches, no migraines, no tic, no convulsions, no aphasia, no change in speech, no change in mentation, no confusion, no memory loss, no changes in smell/taste, no motor disturbance, no sensory deficit, no loss of vision, no hearing difficulties, no burning pain, no paralysis, no spasticity, no other Psychiatric: no confusion Physical Examination - Vital Signs Vital Signs: Vital Signs Temp Pulse Resp BP Pulse Ox 97.8 F 76 20 156/70 99 09/05/18 14:11 09/05/18 14:11 09/05/18 14:11 09/05/18 14:11 09/05/18 14:11 - Constitutional General appearance: acutely ill - EENT EENT: Present: PERRL, hearing intact, vision intact - Respiratory Respiratory: Present: lungs clear, normal breath sounds, no respiratory distress - Cardiovascular Cardiovascular: Present: regular rate, normal S1, normal S2, no murmurs Extremities: Present: no peripheral edema bilatateraly, no ischemia or petechiae - Gastrointestinal Gastrointestinal: Present: normoactive bowel sounds, soft, non-tender - Neurologic Cranial nerve examination: PERRL (extraocular movements are full however a [place] césar tests reveals that she has a crossed diplopia which is worse on right gaze. There is no positional nystagmus), VFF, nystagmus (she has spontaneous nystagmus she appears to be worse on right gaze unless some left base. Patient has a crust which is worse and right gaze suggesting and abduction insufficiency primarily affecting the left eye. 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), intact shoulder shrug, intact gag reflex, Intact Vestibulo-ocular r, intact corneal reflex Results - Laboratory Findings CBC and BMP: 09/06/18 04:45 09/06/18 04:45 Abnormal Lab Findings: Abnormal Labs 09/05/18 09/05/18 09/06/18 14:38 14:38 04:45 WBC 12.5 H Lymph % (Auto) 8.4 L Lymph # 1.0 L Seg Neutrophils % 89.0 H 74.5 H Seg Neutrophils # 11.1 H 8.1 H Sodium 136 L Chloride Carbon Dioxide 19 L Creatinine 0.5 L Glucose 136 H 09/06/18 04:45 WBC Lymph % (Auto) Lymph # Seg Neutrophils % Seg Neutrophils # Sodium Chloride 107.4 H Carbon Dioxide 21 L Creatinine 0.5 L Glucose - Diagnostic Findings EKG: report reviewed Chest x-ray: report reviewed Assessment and Plan Brain MRI, possible lumbar puncture for MS screening. Audiology for hearing test sedimentation rate, AMA, RA latex - Patient Problems (1) Vertigo, central Current Visit: Yes Status: Acute Plan to address problem: This patient has a acute vertigo with no loss of hearing or tinnitus. 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 A demyelinating disease such as MS should be excluded as well as small vessel disease. Patient notes an MRI scan of the brain with and without contrast as well as a sedimentation rate and workup for rheumatologic disease. Symptomatic treatment should include antinausea medication.
--- NOTE | 2018-09-06 13:44 | Ultrasound Report ---
ULTRASOUND THYROID SCAN History: Thyroid nodule. Findings: The right thyroid lobe measures 4.8 x 1.5 x 1.7 cm. No nodule or cyst. The isthmus is normal measuring 0.4 cm. The left thyroid lobe measures 5.4 x 2.2 x 2.0 cm. A 2.3 x 1.6 x 1.4 cm nodule is identified in the mid left thyroid lobe. The nodule is slightly complex containing linear calcifications and small cystic areas. Impression: Slightly complex left thyroid nodule as described.
--- NOTE | 2018-09-06 17:32 | Magnetic Resonance Report ---
FINAL REPORT PROCEDURE: MR BRAIN WO CON TECHNIQUE: Magnetic resonance imaging of the brain was performed without contrast material. HISTORY: dizziness/nystagmus COMPARISON: CT scan of the brain 09/05/2018 FINDINGS: There is no evidence of intracranial hemorrhage. No parenchymal hemorrhage, mass lesions or mass effect are seen. The ventricles are normal size and are midline. No abnormal extra-axial fluid collections or masses are identified. Normal bernal-white matter differentiation is seen. The corpus callosum, region of the pituitary fossa and foramen magnum show no abnormalities. No abnormal areas of restricted diffusion are seen that would suggest an acute ischemic event. Paranasal sinuses are clear. The mastoid air cells are clear. Incidental note is made of multiple nonspecific subcutaneous nodules measuring up to 1.1 centimeters over the scalp superiorly greater on the right than the left. There may be multiple sebaceous cyst present. Other nodules not entirely excluded. Correlation with physical exam recommended. IMPRESSION: Negative MRI of the brain. Nonspecific subcutaneous nodules.
[2018-09-06] MEDS: ANTIVERT PO PRN (19:49)
[2018-09-07 05:47] LABS: Basophils % (Auto) 0.4 % (0.0-1.8); Eosinophils # (Auto) 0.1 K/mm3 (0.0-0.4); Eosinophils % (Auto) 1.3 % (0.0-4.3); Hematocrit 35.6 % (30.3-42.9); Hemoglobin 12.2 gm/dl (10.1-14.3); Lymphocytes # (Auto) 2.2 K/mm3 (1.2-5.4); Lymphocytes % (Auto) 33.9 % (13.4-35.0); Mean Corpuscular HGB Conc 34 % (30-34); Mean Corpuscular Hemoglobin 30 pg (28-32); Mean Corpuscular Volume 88 fl (79-97); Monocytes # (Auto) 0.4 K/mm3 (0.0-0.8); Platelet Count 242 K/mm3 (140-440); Red Blood Count 4.07 M/mm3 (3.65-5.03); Red Cell Distribution Width 13.5 % (13.2-15.2)
[2018-09-07 06:09] LABS: BUN/Creatinine Ratio 18; Blood Urea Nitrogen 9 mg/dL (7-17); Calcium 8.1 mg/dL (8.4-10.2); Hemolysis Index 36
[2018-09-07] MEDS: LOVENOX SUB-Q SCH (09:38)
[2018-09-07] MEDS: SODIUM CHLORIDE FLUSH SYRINGE 10 ML IV SCH ×2 (09:39→22:28)
--- NOTE | 2018-09-07 09:44 | Discharge Summary ---
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 female with no PMHx except for induce hypertension, obesity who presents to the ER via EMS from home with a complaint of dizziness, nausea and vomiting that started the morning prior to admission. The patient was admitted with diagnosis of vertigo. Patient underwent CT scan of the head along with CTA of the head and neck. Findings were unremarkable. Neurology saw the patient in consultation and reported from the exam that she has spontaneous nystagmus she appears to be worse on right gaze unless some left base. Patient has a crust which is worse and right gaze suggesting and abduction insufficiency primarily affecting the left eye. 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 However, MRI was unremarkable. Patient notes an MRI scan of the brain with and without contrast as well as a sedimentation rate and workup for rheumatologic disease. Neurology recommended Symptomatic treatment should include antinausea medication. The patient also received medication for acute vertigo. The patient should have further outpatient follow -up with rheumatology and neurology. A demyelinating disease such as MS should be excluded as well as small vessel disease. Also, Audiology for hearing test. Core Measure Documentation - Palliative Care Palliative Care/ Comfort Measures: Not Applicable - Core Measures Any of the following diagnoses?: none Exam - Constitutional Vitals: Temp Pulse Resp BP Pulse Ox 97.9 F 63 18 132/70 96 09/07/18 00:14 09/07/18 00:14 09/07/18 00:14 09/07/18 00:14 09/07/18 00:14 General appearance: Present: no acute distress, well-nourished - EENT Eyes: Present: PERRL ENT: hearing intact, clear oral mucosa - Neck Neck: Present: supple, normal ROM - Respiratory Respiratory effort: normal Respiratory: bilateral: CTA - Cardiovascular Heart Sounds: Present: S1 & S2. Absent: rub, click - Extremities Extremities: pulses symmetrical, No edema Peripheral Pulses: within normal limits - Abdominal General gastrointestinal: Present: soft, non-tender, non-distended, normal bowel sounds Female genitourinary: Present: normal - Integumentary Integumentary: Present: clear, warm, dry - Musculoskeletal Musculoskeletal: gait normal, strength equal bilaterally - Psychiatric Psychiatric: appropriate mood/affect, intact judgment & insight - Neurologic Neurologic: CNII-XII intact, moves all extremities Plan Activity: no restrictions Weight Bearing Status: Full Weight Bearing Follow up with: PRIMARY CARE, [Primary Care Provider] - 3-5 Days Prescriptions: Meclizine [Antivert] 25 mg PO Q8H PRN #30 tablet PRN Reason: Vertigo Ondansetron (Nf) [Zofran TAB] 4 mg PO Q8HR PRN #20 tablet PRN Reason: Nausea
--- NOTE | 2018-09-07 14:02 | Progress Note ---
Assessment and Plan Assessment and plan: Benign positional vertigo. Continue meclizine daily. Follow-up MRI unremarkable. CT of the neck revealed vertebral arteries and carotid arteries widely patent without focal abnormality. Nausea and vomiting. Etiology secondary to above. Continue supportive care-- Zofran Thyroid nodule. Thyroid scan as OP ?MS This patient has a acute vertigo with no loss of hearing or tinnitus. Neurology feels that she may to have a possible internuclear ophthalmoplegia. A demyelinating disease such as MS should be excluded as well as small vessel disease. MRI as noted above was negative We will check sed rate and schedule for LP as per Neuro rec History Interval history: No new issues overnight. Hospitalist Physical - Constitutional Vitals: Temp Pulse Resp BP Pulse Ox 97.6 F 55 L 18 132/73 98 09/07/18 09:24 09/07/18 04:40 09/07/18 09:24 09/07/18 09:24 09/07/18 04:40 General appearance: Present: no acute distress, well-nourished - EENT Eyes: Present: PERRL, EOM intact ENT: hearing intact, clear oral mucosa, dentition normal - Neck Neck: Present: supple, normal ROM - Respiratory Respiratory effort: normal Respiratory: bilateral: CTA - Cardiovascular Rhythm: regular Heart Sounds: Present: S1 & S2. Absent: gallop, rub - Extremities Extremities: no ischemia, No edema, Full ROM - Abdominal General gastrointestinal: soft, non-tender, non-distended, normal bowel sounds - Integumentary Integumentary: Present: clear, warm, dry - Neurologic Neurologic: CNII-XII intact, moves all extremities Results - Labs CBC & Chem 7: 09/07/18 05:02 09/07/18 05:02 Labs: Laboratory Last Values WBC 6.6 K/mm3 (4.5-11.0) 09/07/18 05:02 RBC 4.07 M/mm3 (3.65-5.03) 09/07/18 05:02 Hgb 12.2 gm/dl (10.1-14.3) 09/07/18 05:02 Hct 35.6 % (30.3-42.9) 09/07/18 05:02 MCV 88 fl (79-97) 09/07/18 05:02 MCH 30 pg (28-32) 09/07/18 05:02 MCHC 34 % (30-34) 09/07/18 05:02 RDW 13.5 % (13.2-15.2) 09/07/18 05:02 Plt Count 242 K/mm3 (140-440) 09/07/18 05:02 Lymph % (Auto) 33.9 % (13.4-35.0) 09/07/18 05:02 [place] % (Auto) 6.0 % (0.0-7.3) 09/07/18 05:02 Eos % (Auto) 1.3 % (0.0-4.3) 09/07/18 05:02 Baso % (Auto) 0.4 % (0.0-1.8) 09/07/18 05:02 Lymph # 2.2 K/mm3 (1.2-5.4) 09/07/18 05:02 [place] # 0.4 K/mm3 (0.0-0.8) 09/07/18 05:02 Eos # 0.1 K/mm3 (0.0-0.4) 09/07/18 05:02 Baso # 0.0 K/mm3 (0.0-0.1) 09/07/18 05:02 Seg Neutrophils % 58.4 % (40.0-70.0) 09/07/18 05:02 Seg Neutrophils # 3.9 K/mm3 (1.8-7.7) 09/07/18 05:02 ESR 18 mm/Hr (0-20) 09/07/18 10:19 Sodium 138 mmol/L (137-145) 09/07/18 05:02 Potassium 3.4 mmol/L (3.6-5.0) L D 09/07/18 05:02 Chloride 105.8 mmol/L (98-107) 09/07/18 05:02 Carbon Dioxide 21 mmol/L (22-30) L 09/07/18 05:02 Anion Gap 15 mmol/L 09/07/18 05:02 BUN 9 mg/dL (7-17) 09/07/18 05:02 Creatinine 0.5 mg/dL (0.7-1.2) L 09/07/18 05:02 Estimated GFR > 60 ml/min 09/07/18 05:02 BUN/Creatinine Ratio 18 % 09/07/18 05:02 Glucose 84 mg/dL (65-100) 09/07/18 05:02 Calcium 8.1 mg/dL (8.4-10.2) L 09/07/18 05:02 Total Bilirubin 0.30 mg/dL (0.1-1.2) 09/05/18 14:38 Direct Bilirubin < 0.2 mg/dL (0-0.2) 09/05/18 14:38 Indirect Bilirubin 0.1 mg/dL 09/05/18 14:38 AST 17 units/L (5-40) 09/05/18 14:38 ALT 17 units/L (7-56) 09/05/18 14:38 Alkaline Phosphatase 42 units/L (35-129) 09/05/18 14:38 Total Protein 7.5 g/dL (6.3-8.2) 09/05/18 14:38 Albumin 4.2 g/dL (3.9-5) 09/05/18 14:38 Albumin/Globulin Ratio 1.3 % 09/05/18 14:38 Lipase 14 units/L (13-60) 09/05/18 14:38 TSH 2.950 mlU/mL (0.270-4.200) 09/06/18 09:48 HCG, Qual Negative (Negative) 09/05/18 14:38 Urine Color Yellow (Yellow) 09/05/18 15:51 Urine Turbidity Clear (Clear) 09/05/18 15:51 Urine pH 5.0 (5.0-7.0) 09/05/18 15:51 Ur Specific [place] 1.014 (1.003-1.030) 09/05/18 15:51 Urine Protein <15 mg/dl mg/dL (Negative) 09/05/18 15:51 Urine Glucose (UA) Neg mg/dL (Negative) 09/05/18 15:51 Urine Ketones 20 mg/dL (Negative) 09/05/18 15:51 Urine Blood Sm (Negative) 09/05/18 15:51 Urine Nitrite Neg (Negative) 09/05/18 15:51 Urine Bilirubin Neg (Negative) 09/05/18 15:51 Urine Urobilinogen < 2.0 mg/dL (<2.0) 09/05/18 15:51 Ur Leukocyte Esterase Neg (Negative) 09/05/18 15:51 Urine WBC (Auto) 1.0 /HPF (0.0-6.0) 09/05/18 15:51 Urine RBC (Auto) 3.0 /HPF (0.0-6.0) 09/05/18 15:51 U Epithel Cells (Auto) 1.0 /HPF (0-13.0) 09/05/18 15:51 Urine Mucus Few /HPF 09/05/18 15:51 Rheumatoid Factor < 10 IU/ml (0-13) 09/07/18 10:19
[2018-09-07] MEDS: ANTIVERT PO PRN (14:17)
--- NOTE | 2018-09-07 15:22 | Progress Note ---
Assessment and Plan will set up LP with IR for sunday. hold heparin sunday afternoon Subjective Date of service: 09/07/18 Interval history: possible multiple sclerosis need diagnostic lumbar puncture Objective - Exam Narrative Exam: alert still on sub Q heparin for DVT prophylaxis - Constitutional Vitals: Vital Signs - 12hr 09/07/18 09/07/18 04:40 09:24 Temperature 98.2 F 97.6 F Pulse Rate 55 L Respiratory 18 18 Rate Blood Pressure 140/75 132/73 O2 Sat by Pulse 98 Oximetry - Labs CBC & Chem 7: 09/07/18 05:02 09/07/18 05:02 Labs: Abnormal lab results 09/07/18 Range/Units 05:02 Potassium 3.4 L D (3.6-5.0) mmol/L Carbon Dioxide 21 L (22-30) mmol/L Creatinine 0.5 L (0.7-1.2) mg/dL Calcium 8.1 L (8.4-10.2) mg/dL
[2018-09-07] MEDS: NACL 0.45% 1000 ML 1,000 ML IV SCH (16:36)
--- NOTE | 2018-09-07 22:23 | Event Note ---
Date: 09/07/18 Reviewed IR consult. Interventional radiology does not perform lumbar punctures at [facility]. Diagnostic radiology performs lumbar punctures at [facility]. [place] LUMBAR PUNCTURE ordered to prevent delay in care. Future correspondence needs to be performed with diagnostic radiology.
[2018-09-08] MEDS: NACL 0.45% 1000 ML 1,000 ML IV SCH (05:55)
[2018-09-08] MEDS: LOVENOX SUB-Q SCH (09:39)
--- NOTE | 2018-09-08 10:16 | Progress Note ---
Assessment and Plan Assessment and plan: Benign positional vertigo. Continue meclizine daily. Follow-up MRI unremarkable. CT of the neck revealed vertebral arteries and carotid arteries widely patent without focal abnormality. Nausea and vomiting. Etiology secondary to above. Continue supportive care-- Zofran Thyroid nodule. Thyroid scan as OP ?MS This patient has a acute vertigo with no loss of hearing or tinnitus. Neurology feels that she may have possible internuclear ophthalmoplegia. A demyelinating disease such as MS should be excluded as well as small vessel disease. MRI as noted above was negative. We will check sed rate and schedule for diagnostic fluoroscopic LP tomorrow. History Interval history: No new issues overnight. Hospitalist Physical - Constitutional Vitals: Temp Pulse Resp BP Pulse Ox 98.4 F 59 L 19 138/85 97 09/08/18 08:59 09/08/18 08:59 09/08/18 08:59 09/08/18 08:59 09/08/18 08:59 General appearance: Present: no acute distress, well-nourished - EENT Eyes: Present: PERRL, EOM intact ENT: hearing intact, clear oral mucosa, dentition normal - Neck Neck: Present: supple, normal ROM - Respiratory Respiratory effort: normal Respiratory: bilateral: CTA - Cardiovascular Rhythm: regular Heart Sounds: Present: S1 & S2. Absent: gallop, rub - Extremities Extremities: no ischemia, No edema, Full ROM - Abdominal General gastrointestinal: soft, non-tender, non-distended, normal bowel sounds - Integumentary Integumentary: Present: clear, warm, dry - Neurologic Neurologic: CNII-XII intact, moves all extremities Results - Labs CBC & Chem 7: 09/07/18 05:02 09/07/18 05:02 Labs: Laboratory Last Values WBC 6.6 K/mm3 (4.5-11.0) 09/07/18 05:02 RBC 4.07 M/mm3 (3.65-5.03) 09/07/18 05:02 Hgb 12.2 gm/dl (10.1-14.3) 09/07/18 05:02 Hct 35.6 % (30.3-42.9) 09/07/18 05:02 MCV 88 fl (79-97) 09/07/18 05:02 MCH 30 pg (28-32) 09/07/18 05:02 MCHC 34 % (30-34) 09/07/18 05:02 RDW 13.5 % (13.2-15.2) 09/07/18 05:02 Plt Count 242 K/mm3 (140-440) 09/07/18 05:02 Lymph % (Auto) 33.9 % (13.4-35.0) 09/07/18 05:02 [place] % (Auto) 6.0 % (0.0-7.3) 09/07/18 05:02 Eos % (Auto) 1.3 % (0.0-4.3) 09/07/18 05:02 Baso % (Auto) 0.4 % (0.0-1.8) 09/07/18 05:02 Lymph # 2.2 K/mm3 (1.2-5.4) 09/07/18 05:02 [place] # 0.4 K/mm3 (0.0-0.8) 09/07/18 05:02 Eos # 0.1 K/mm3 (0.0-0.4) 09/07/18 05:02 Baso # 0.0 K/mm3 (0.0-0.1) 09/07/18 05:02 Seg Neutrophils % 58.4 % (40.0-70.0) 09/07/18 05:02 Seg Neutrophils # 3.9 K/mm3 (1.8-7.7) 09/07/18 05:02 ESR 18 mm/Hr (0-20) 09/07/18 10:19 Sodium 138 mmol/L (137-145) 09/07/18 05:02 Potassium 3.4 mmol/L (3.6-5.0) L D 09/07/18 05:02 Chloride 105.8 mmol/L (98-107) 09/07/18 05:02 Carbon Dioxide 21 mmol/L (22-30) L 09/07/18 05:02 Anion Gap 15 mmol/L 09/07/18 05:02 BUN 9 mg/dL (7-17) 09/07/18 05:02 Creatinine 0.5 mg/dL (0.7-1.2) L 09/07/18 05:02 Estimated GFR > 60 ml/min 09/07/18 05:02 BUN/Creatinine Ratio 18 % 09/07/18 05:02 Glucose 84 mg/dL (65-100) 09/07/18 05:02 Calcium 8.1 mg/dL (8.4-10.2) L 09/07/18 05:02 Total Bilirubin 0.30 mg/dL (0.1-1.2) 09/05/18 14:38 Direct Bilirubin < 0.2 mg/dL (0-0.2) 09/05/18 14:38 Indirect Bilirubin 0.1 mg/dL 09/05/18 14:38 AST 17 units/L (5-40) 09/05/18 14:38 ALT 17 units/L (7-56) 09/05/18 14:38 Alkaline Phosphatase 42 units/L (35-129) 09/05/18 14:38 Total Protein 7.5 g/dL (6.3-8.2) 09/05/18 14:38 Albumin 4.2 g/dL (3.9-5) 09/05/18 14:38 Albumin/Globulin Ratio 1.3 % 09/05/18 14:38 Lipase 14 units/L (13-60) 09/05/18 14:38 TSH 2.950 mlU/mL (0.270-4.200) 09/06/18 09:48 HCG, Qual Negative (Negative) 09/05/18 14:38 Urine Color Yellow (Yellow) 09/05/18 15:51 Urine Turbidity Clear (Clear) 09/05/18 15:51 Urine pH 5.0 (5.0-7.0) 09/05/18 15:51 Ur Specific [place] 1.014 (1.003-1.030) 09/05/18 15:51 Urine Protein <15 mg/dl mg/dL (Negative) 09/05/18 15:51 Urine Glucose (UA) Neg mg/dL (Negative) 09/05/18 15:51 Urine Ketones 20 mg/dL (Negative) 09/05/18 15:51 Urine Blood Sm (Negative) 09/05/18 15:51 Urine Nitrite Neg (Negative) 09/05/18 15:51 Urine Bilirubin Neg (Negative) 09/05/18 15:51 Urine Urobilinogen < 2.0 mg/dL (<2.0) 09/05/18 15:51 Ur Leukocyte Esterase Neg (Negative) 09/05/18 15:51 Urine WBC (Auto) 1.0 /HPF (0.0-6.0) 09/05/18 15:51 Urine RBC (Auto) 3.0 /HPF (0.0-6.0) 09/05/18 15:51 U Epithel Cells (Auto) 1.0 /HPF (0-13.0) 09/05/18 15:51 Urine Mucus Few /HPF 09/05/18 15:51 Rheumatoid Factor < 10 IU/ml (0-13) 09/07/18 10:19
[2018-09-08] MEDS: SODIUM CHLORIDE FLUSH SYRINGE 10 ML IV SCH ×2 (10:23→22:12)
--- NOTE | 2018-09-08 16:37 | Progress Note ---
Assessment and Plan For lumbar puncture in general radiology. Held Lovenox today. Can be restarted postprocedure per primary care team. Subjective Date of service: 09/08/18 Interval history: Patient for lumbar puncture tomorrow. Our interventional radiology colleagues have informed me that his procedures done by Gen. radiologist and not IR. As a courtesy Dr. Ruiz placed the general radiology order for lumbar puncture. As a similar courtesy I have held her Lovenox during today so that she may get her puncture tomorrow. Objective - Constitutional Vitals: Vital Signs - 12hr 09/08/18 09/08/18 05:28 08:59 Temperature 98.4 F Pulse Rate 59 L 59 L Respiratory 19 Rate Blood Pressure 138/85 O2 Sat by Pulse 96 97 Oximetry - Labs CBC & Chem 7: 09/07/18 05:02 09/07/18 05:02
[2018-09-09] MEDS: NACL 0.45% 1000 ML 1,000 ML IV SCH (09:05)
--- NOTE | 2018-09-09 09:49 | Progress Note ---
Assessment and Plan Assessment and plan: Benign positional vertigo. Continue meclizine daily. Follow-up MRI unremarkable. CT of the neck revealed vertebral arteries and carotid arteries widely patent without focal abnormality. Nausea and vomiting. Etiology secondary to above. Continue supportive care-- Zofran Thyroid nodule. Thyroid scan as OP ?MS. This patient has a acute vertigo with no loss of hearing or tinnitus. Neurology feels that she may have possible internuclear ophthalmoplegia. A demyelinating disease such as MS should be excluded as well as small vessel disease. MRI as noted above was negative. We will check sed rate and patient to have diagnostic fluoroscopic LP today per neurology recommendations. History Interval history: No new issues overnight. Hospitalist Physical - Constitutional Vitals: Temp Pulse Resp BP Pulse Ox 98.5 F 61 20 140/80 99 09/09/18 08:21 09/09/18 08:21 09/09/18 08:21 09/09/18 08:21 09/09/18 08:21 General appearance: Present: no acute distress, well-nourished - EENT Eyes: Present: PERRL, EOM intact ENT: hearing intact, clear oral mucosa, dentition normal - Neck Neck: Present: supple, normal ROM - Respiratory Respiratory effort: normal Respiratory: bilateral: CTA - Cardiovascular Rhythm: regular Heart Sounds: Present: S1 & S2. Absent: gallop, rub - Extremities Extremities: no ischemia, No edema, Full ROM - Abdominal General gastrointestinal: soft, non-tender, non-distended, normal bowel sounds - Integumentary Integumentary: Present: clear, warm, dry - Neurologic Neurologic: CNII-XII intact, moves all extremities Results - Labs CBC & Chem 7: 09/07/18 05:02 09/07/18 05:02 Labs: Laboratory Last Values WBC 6.6 K/mm3 (4.5-11.0) 09/07/18 05:02 RBC 4.07 M/mm3 (3.65-5.03) 09/07/18 05:02 Hgb 12.2 gm/dl (10.1-14.3) 09/07/18 05:02 Hct 35.6 % (30.3-42.9) 09/07/18 05:02 MCV 88 fl (79-97) 09/07/18 05:02 MCH 30 pg (28-32) 09/07/18 05:02 MCHC 34 % (30-34) 09/07/18 05:02 RDW 13.5 % (13.2-15.2) 09/07/18 05:02 Plt Count 242 K/mm3 (140-440) 09/07/18 05:02 Lymph % (Auto) 33.9 % (13.4-35.0) 09/07/18 05:02 [place] % (Auto) 6.0 % (0.0-7.3) 09/07/18 05:02 Eos % (Auto) 1.3 % (0.0-4.3) 09/07/18 05:02 Baso % (Auto) 0.4 % (0.0-1.8) 09/07/18 05:02 Lymph # 2.2 K/mm3 (1.2-5.4) 09/07/18 05:02 [place] # 0.4 K/mm3 (0.0-0.8) 09/07/18 05:02 Eos # 0.1 K/mm3 (0.0-0.4) 09/07/18 05:02 Baso # 0.0 K/mm3 (0.0-0.1) 09/07/18 05:02 Seg Neutrophils % 58.4 % (40.0-70.0) 09/07/18 05:02 Seg Neutrophils # 3.9 K/mm3 (1.8-7.7) 09/07/18 05:02 ESR 18 mm/Hr (0-20) 09/07/18 10:19 Sodium 138 mmol/L (137-145) 09/07/18 05:02 Potassium 3.4 mmol/L (3.6-5.0) L D 09/07/18 05:02 Chloride 105.8 mmol/L (98-107) 09/07/18 05:02 Carbon Dioxide 21 mmol/L (22-30) L 09/07/18 05:02 Anion Gap 15 mmol/L 09/07/18 05:02 BUN 9 mg/dL (7-17) 09/07/18 05:02 Creatinine 0.5 mg/dL (0.7-1.2) L 09/07/18 05:02 Estimated GFR > 60 ml/min 09/07/18 05:02 BUN/Creatinine Ratio 18 % 10/20/18 05:02 Glucose 84 mg/dL (65-100) 09/07/18 05:02 Calcium 8.1 mg/dL (8.4-10.2) L 09/07/18 05:02 Total Bilirubin 0.30 mg/dL (0.1-1.2) 09/05/18 14:38 Direct Bilirubin < 0.2 mg/dL (0-0.2) 09/05/18 14:38 Indirect Bilirubin 0.1 mg/dL 09/05/18 14:38 AST 17 units/L (5-40) 09/05/18 14:38 ALT 17 units/L (7-56) 09/05/18 14:38 Alkaline Phosphatase 42 units/L (35-129) 09/05/18 14:38 Total Protein 7.5 g/dL (6.3-8.2) 09/05/18 14:38 Albumin 4.2 g/dL (3.9-5) 09/05/18 14:38 Albumin/Globulin Ratio 1.3 % 09/05/18 14:38 Lipase 14 units/L (13-60) 09/05/18 14:38 TSH 2.950 mlU/mL (0.270-4.200) 09/06/18 09:48 HCG, Qual Negative (Negative) 09/05/18 14:38 Urine Color Yellow (Yellow) 09/05/18 15:51 Urine Turbidity Clear (Clear) 09/05/18 15:51 Urine pH 5.0 (5.0-7.0) 09/05/18 15:51 Ur Specific [place] 1.014 (1.003-1.030) 09/05/18 15:51 Urine Protein <15 mg/dl mg/dL (Negative) 09/05/18 15:51 Urine Glucose (UA) Neg mg/dL (Negative) 09/05/18 15:51 Urine Ketones 20 mg/dL (Negative) 09/05/18 15:51 Urine Blood Sm (Negative) 09/05/18 15:51 Urine Nitrite Neg (Negative) 09/05/18 15:51 Urine Bilirubin Neg (Negative) 09/05/18 15:51 Urine Urobilinogen < 2.0 mg/dL (<2.0) 09/05/18 15:51 Ur Leukocyte Esterase Neg (Negative) 09/05/18 15:51 Urine WBC (Auto) 1.0 /HPF (0.0-6.0) 09/05/18 15:51 Urine RBC (Auto) 3.0 /HPF (0.0-6.0) 09/05/18 15:51 U Epithel Cells (Auto) 1.0 /HPF (0-13.0) 09/05/18 15:51 Urine Mucus Few /HPF 09/05/18 15:51 Rheumatoid Factor < 10 IU/ml (0-13) 09/07/18 10:19
[2018-09-09] MEDS: SODIUM CHLORIDE FLUSH SYRINGE 10 ML IV SCH ×2 (10:00→22:52)
[2018-09-09 13:25] LABS: INR 0.83 (0.87-1.13)
[2018-09-09 13:26] LABS: Partial Thromboplastin Time 31.4 Sec. (24.2-36.6)
[2018-09-09] MEDS ORDERED: XYLOCAINE 1% 20 mL ONE (13:55)
--- NOTE | 2018-09-09 14:57 | Procedure Note ---
Date of procedure: 09/09/18 Pre-op diagnosis: multiple sclerosis Post-op diagnosis: same Procedure: lumbar puncture Anesthesia: local Surgeon: RAFI TOMLINSON Estimated blood loss: none Pathology: none Specimen disposition: other (unsuccessful LP. No fluid could be aspirated/ collected.) Condition: stable Disposition: floor
--- NOTE | 2018-09-10 08:18 | Fluoroscopy Report ---
FLUOROSCOPY LUMBAR PUNCTURE History: Multiple sclerosis. Description of procedure: Informed consent was obtained. Sterile technique was utilized. 1% lidocaine for skin anesthesia. 2 fluoroscopic images and 2 crosstable lateral radiographs were obtained during this exam. Multiple attempts at lumbar puncture was performed at the L3-4 level. PA fluoroscopic images and crosstable lateral right radiographs confirm good placement of the needle. No CSF return was noted. Attempts to aspirate the CSF was also performed but was unsuccessful. Impression: Unsuccessful fluoroscopy guided lumbar puncture. A dry spinal tap was obtained.
--- NOTE | 2018-09-10 11:42 | Discharge Summary ---
Providers - Providers Date of Admission: 09/05/18 23:59 Attending physician: ALLEN HOLGUIN 09/06/18 07:23 Consult to Physician [CONS] Routine Comment: Consulting Provider: MATT CAMERON Physician Instructions: Reason For Exam: dizziness 09/07/18 09:50 Consult to Interventional Radiology [CONS] Routine Consulting Provider: FLORENTINO CERVANTES Reason For Exam: LP r/o MS Place consult to:: dr cervantes Notified:: a service Phone number called:: [phone] Was contact made?: Yes If yes, spoke with:: serafin Time called:: 10:55 Primary care physician: [employer] Hospitalization Condition: Fair Core Measure Documentation - Palliative Care Palliative Care/ Comfort Measures: Not Applicable Exam - Constitutional Vitals: Temp Pulse Resp BP Pulse Ox 98.6 F 72 18 149/85 98 09/10/18 08:27 09/10/18 08:34 09/10/18 08:27 09/10/18 08:27 09/10/18 08:35 Plan Follow up with: PRIMARY CAREMD [Primary Care Provider] - 3-5 Days Prescriptions: Meclizine [Antivert] 25 mg PO Q8H PRN #30 tablet PRN Reason: Vertigo Ondansetron (Nf) [Zofran TAB] 4 mg PO Q8HR PRN #20 tablet PRN Reason: Nausea
--- NOTE | 2018-09-10 17:01 | Progress Note ---
Assessment and Plan Assessment and plan: Benign positional vertigo. Continue meclizine daily. Follow-up MRI unremarkable. CT of the neck revealed vertebral arteries and carotid arteries widely patent without focal abnormality. Nausea and vomiting. Etiology secondary to above. Continue supportive care-- Zofran Thyroid nodule. Thyroid scan as OP ?MS. This patient has a acute vertigo with no loss of hearing or tinnitus. Neurology feels that she may have possible internuclear ophthalmoplegia. A demyelinating disease such as MS should be excluded as well as small vessel disease. MRI as noted above was negative. We will check sed rate and patient to have diagnostic fluoroscopic LP today per neurology recommendations. History Interval history: Nausea and vomiting resolved Hospitalist Physical - Physical exam Narrative exam: GEN: Not in acute distress, HEENT: Normocephalic, atraumatic, Neck: supple, No JVD Lungs: Clear to auscultation bilaterally, no crackles, no wheeze Heart:S1 and S2 regular, no murmurs, rubs or gallop, Abd:soft, non-tender, non-distended, normal bowel sounds Ext: No edema, no clubbing, no cyanosis Neuro: AAO x 3, no focal neurological signs - Constitutional Vitals: Temp Pulse Resp BP Pulse Ox 98.2 F 76 20 149/88 100 09/10/18 12:25 09/10/18 12:25 09/10/18 12:25 09/10/18 12:25 09/10/18 12:25 General appearance: Present: no acute distress, well-nourished Results - Labs CBC & Chem 7: 09/07/18 05:02 09/07/18 05:02 Labs: Laboratory Last Values WBC 6.6 K/mm3 (4.5-11.0) 09/07/18 05:02 RBC 4.07 M/mm3 (3.65-5.03) 09/07/18 05:02 Hgb 12.2 gm/dl (10.1-14.3) 09/07/18 05:02 Hct 35.6 % (30.3-42.9) 09/07/18 05:02 MCV 88 fl (79-97) 09/07/18 05:02 MCH 30 pg (28-32) 09/07/18 05:02 MCHC 34 % (30-34) 09/07/18 05:02 RDW 13.5 % (13.2-15.2) 09/07/18 05:02 Plt Count 242 K/mm3 (140-440) 09/07/18 05:02 Lymph % (Auto) 33.9 % (13.4-35.0) 09/07/18 05:02 [place] % (Auto) 6.0 % (0.0-7.3) 09/07/18 05:02 Eos % (Auto) 1.3 % (0.0-4.3) 09/07/18 05:02 Baso % (Auto) 0.4 % (0.0-1.8) 09/07/18 05:02 Lymph # 2.2 K/mm3 (1.2-5.4) 09/07/18 05:02 [place] # 0.4 K/mm3 (0.0-0.8) 09/07/18 05:02 Eos # 0.1 K/mm3 (0.0-0.4) 09/07/18 05:02 Baso # 0.0 K/mm3 (0.0-0.1) 09/07/18 05:02 Seg Neutrophils % 58.4 % (40.0-70.0) 09/07/18 05:02 Seg Neutrophils # 3.9 K/mm3 (1.8-7.7) 09/07/18 05:02 ESR 18 mm/Hr (0-20) 09/07/18 10:19 PT 11.9 Sec. (12.2-14.9) L 09/09/18 12:33 INR 0.83 (0.87-1.13) L 09/09/18 12:33 APTT 31.4 Sec. (24.2-36.6) 09/09/18 12:33 Sodium 138 mmol/L (137-145) 09/07/18 05:02 Potassium 3.4 mmol/L (3.6-5.0) L D 09/07/18 05:02 Chloride 105.8 mmol/L (98-107) 09/07/18 05:02 Carbon Dioxide 21 mmol/L (22-30) L 09/07/18 05:02 Anion Gap 15 mmol/L 09/07/18 05:02 BUN 9 mg/dL (7-17) 09/07/18 05:02 Creatinine 0.5 mg/dL (0.7-1.2) L 09/07/18 05:02 Estimated GFR > 60 ml/min 09/07/18 05:02 BUN/Creatinine Ratio 18 % 09/07/18 05:02 Glucose 84 mg/dL (65-100) 09/07/18 05:02 Calcium 8.1 mg/dL (8.4-10.2) L 09/07/18 05:02 Total Bilirubin 0.30 mg/dL (0.1-1.2) 09/05/18 14:38 Direct Bilirubin < 0.2 mg/dL (0-0.2) 09/05/18 14:38 Indirect Bilirubin 0.1 mg/dL 09/05/18 14:38 AST 17 units/L (5-40) 09/05/18 14:38 ALT 17 units/L (7-56) 09/05/18 14:38 Alkaline Phosphatase 42 units/L (35-129) 09/05/18 14:38 Total Protein 7.5 g/dL (6.3-8.2) 09/05/18 14:38 Albumin 4.2 g/dL (3.9-5) 09/05/18 14:38 Albumin/Globulin Ratio 1.3 % 09/05/18 14:38 Lipase 14 units/L (13-60) 09/05/18 14:38 TSH 2.950 mlU/mL (0.270-4.200) 09/06/18 09:48 HCG, Qual Negative (Negative) 09/05/18 14:38 Urine Color Yellow (Yellow) 09/05/18 15:51 Urine Turbidity Clear (Clear) 09/05/18 15:51 Urine pH 5.0 (5.0-7.0) 09/05/18 15:51 Ur Specific [place] 1.014 (1.003-1.030) 09/05/18 15:51 Urine Protein <15 mg/dl mg/dL (Negative) 09/05/18 15:51 Urine Glucose (UA) Neg mg/dL (Negative) 09/05/18 15:51 Urine Ketones 20 mg/dL (Negative) 09/05/18 15:51 Urine Blood Sm (Negative) 09/05/18 15:51 Urine Nitrite Neg (Negative) 09/05/18 15:51 Urine Bilirubin Neg (Negative) 09/05/18 15:51 Urine Urobilinogen < 2.0 mg/dL (<2.0) 09/05/18 15:51 Ur Leukocyte Esterase Neg (Negative) 09/05/18 15:51 Urine WBC (Auto) 1.0 /HPF (0.0-6.0) 09/05/18 15:51 Urine RBC (Auto) 3.0 /HPF (0.0-6.0) 09/05/18 15:51 U Epithel Cells (Auto) 1.0 /HPF (0-13.0) 09/05/18 15:51 Urine Mucus Few /HPF 09/05/18 15:51 Rheumatoid Factor < 10 IU/ml (0-13) 09/07/18 10:19
[2018-09-10] MEDS: SODIUM CHLORIDE FLUSH SYRINGE 10 ML IV SCH (21:47)
[2018-09-11] MEDS: SODIUM CHLORIDE FLUSH SYRINGE 10 ML IV SCH ×2 (09:29→11:39)
[2018-09-11 13:05] VITALS: BP 145/91
--- NOTE | 2018-09-11 13:24 | Magnetic Resonance Report ---
FINAL REPORT EXAM: MR BRAIN W CON HISTORY: Rule out Multiple sclerosis TECHNIQUE: Post-contrast MRI imaging is performed. This is read in conjunction with noncontrast MRI study of 09/06/2018. PRIORS: Precontrast exam of 09/06/2018 FINDINGS: Previously obtained FLAIR imaging demonstrates no abnormal signal lesions to indicate a demyelinating process. Post-contrast images demonstrate no enhancing intracranial abnormality. Multiple subcutaneous nodules involving the scalp are again seen. I cannot confirm any significant enhancement. IMPRESSION: There is no enhancing abnormality seen.
--- NOTE | 2018-09-11 13:28 | Magnetic Resonance Report ---
FINAL REPORT EXAM: MR CERVICAL SPINE WO/W CON HISTORY: Rule out Multiple sclerosis TECHNIQUE: Fat sensitive and fluid sensitive MR sequences of the cervical spine were performed in sagittal and axial planes. Images were obtained before and after IV contrast. 15 cc MultiHance IV contrast was administered. PRIORS: None. FINDINGS: Vertebral heights and alignment were obtain. There is no bone bruise or fracture seen. There is no disc protrusion, spinal stenosis or neuroforaminal stenosis seen. There are no abnormal signal lesions within the spinal cord. Post-contrast images demonstrate no cervical spine enhancing lesion. There is, however, partially 1.5 x 2.0 cm nodule within the left thyroid lobe. IMPRESSION: No significant abnormality seen involving the cervical spine. Partially enhancing 1.5 x 2.0 cm nodule in left thyroid lobe.
--- NOTE | 2018-09-11 13:56 | Discharge Summary ---
Providers - Providers Date of Admission: 09/05/18 23:59 Date of discharge: 09/11/18 Attending physician: ALLEN HOLGUIN 09/06/18 07:23 Consult to Physician [CONS] Routine Comment: Consulting Provider: MATT CAMERON Physician Instructions: Reason For Exam: dizziness 09/07/18 09:50 Consult to Interventional Radiology [CONS] Routine Consulting Provider: FLORENTINO CERVANTES Reason For Exam: LP r/o MS Place consult to:: dr cervantes Notified:: a service Phone number called:: [phone] Was contact made?: Yes If yes, spoke with:: serafin Time called:: 10:55 Primary care physician: VISUAL MERCH[employer]ISING DIRECTOR Hospitalization Condition: Fair Disposition: DC-01 TO HOME OR SELFCARE Core Measure Documentation - Palliative Care Palliative Care/ Comfort Measures: Not Applicable - Core Measures Any of the following diagnoses?: none Exam - Constitutional Vitals: Temp Pulse Resp BP Pulse Ox 98.3 F 90 18 145/91 99 09/11/18 13:04 09/11/18 13:04 09/11/18 13:04 09/11/18 13:04 09/11/18 13:04 Plan Activity: no restrictions Diet: low fat, low cholesterol, low salt Additional Instructions: 1.Follow up with PCP or [facility] in 1 week. 2.Follow up with Neurology in 1 week. 3.left thyroid nodule to be followed by PCP Follow up with: PRIMARY CARE, [Primary Care Provider] - 3-5 Days Prescriptions: Meclizine [Antivert] 25 mg PO Q8H PRN #30 tablet PRN Reason: Vertigo Ondansetron (Nf) [Zofran TAB] 4 mg PO Q8HR PRN #20 tablet PRN Reason: Nausea
--- NOTE | 2018-09-12 02:06 | Consultation ---
REASON FOR CONSULTATION: To get a clearance neurologically prior to discharge. The patient was seen by Dr. Arceo ____, last Sunday, but no clear diagnosis or no clear neurology disposition was given. I was called to reconsult on this patient. HISTORY OF PRESENT ILLNESS: The patient is a 32-year-old right-handed female from [facility], who presented with dizziness, nausea, and vomiting. She said that she has been doing well until about last , she was getting her children ready and after breakfast and all of a sudden, she felt very dizzy, everything around her was vertiginous or moving around. Therefore, it was an environmental vertigo. After about 2 minutes, it slowly subsided and went away, but prior to that, she had very bad vomiting. She did not have an address other symptoms. No headache, ringing in the ears, chest pain, shortness of breath, palpitation, abdominal pain. She had lost consciousness. This went away. She finished what she was doing, but then around 10 a.m., she had another episode of this dizziness, nausea, and vomiting. She called her friend and then she was brought to the hospital here in our facility. She was given desk. A CT scan of the brain was done and she was told that she should stay, so we can do an MRI. She felt a lot better, but then she had another vomiting at about 6 p.m. on night on the day of admission. She was then admitted and after that, she had no more symptoms. She is much better. She was completely asymptomatic, Sunday, Sunday, and Sunday that was yesterday. She was waiting to be discharged with the MRI of the brain done without contrast, but there was no Neurology clearance. I was just called today later in the afternoon, 09/10/2018, to clear the patient. I did not receive any note or message to see this patient only now late this afternoon of 09/10/2018. Therefore, I went to see the patient. Review of neurologic system, the patient has no headache, only dizziness, nausea and vomiting. No double vision, blurred vision. No problem with his speech, talking. No speech arrest. Denies any ringing in the ear, deafness. No abdominal pain, no lateralizing numbness. No seizure. No passing out spell. PAST MEDICAL HISTORY: The patient had hypertension during and I am not she had preeclampsia. Otherwise, she is very healthy. PAST SURGICAL HISTORY: She had sections twice. SOCIAL HISTORY: She lives with her family. She has two children, 2 and 11. FAMILY HISTORY: Unremarkable. SOCIAL HISTORY: No similar symptoms. PHYSICAL EXAMINATION: GENERAL: Revealed a well-developed, well-nourished moderately obese female who is in no acute distress. VITAL SIGNS: Temperature 97.8, heart rate 64, respirations 18, and regular, blood pressure 163/75, pulse oximetry 100. HEAD, EYES, EARS, NOSE, MOUTH, and THROAT: Examination unremarkable. No intracranial or intraorbital bruit. NECK: Supple. No carotid bruit. HEART: Regular rate and rhythm. LUNGS: Sounds clear. ABDOMEN: Obese, soft. EXTREMITIES: Appeared externally normal. No Babinski. NEUROLOGIC: Awake, alert, normal mental status for age. Speech sounded normal. Cranial nerve examination showed no abnormality except for nystagmus when she looks to the right. There was no definite latency. No paralysis. ____ showed that she had a post-diplopia, which is worsening with right gaze, positional nystagmus to the right side. This is the same finding that I had. Therefore, this is suggestion of internuclear ophthalmoplegia. MOTOR EXAMINATION: Showed 5/5 strength in the upper and lower extremities. No abnormal movements. No abnormal tone. Coordination including normal [id number] and [id number]. No tremor. Sensory testing was normal. Reflexes symmetrical on both sides. No Babinski. The patient walks normally. She was able to do tandem walking. She has no Romberg sign. Therefore, his examination was very normal except for the nystagmus when looking to the right and exacerbated with head position. Questionable internuclear ophthalmoplegia. LABORATORY DATA: The patient has a normal unenhanced CT scan of the brain. Normal CT angiogram of the brain. Normal carotid ultrasound. Brain MRI was done without contrast and this was negative. The patient had a lumbar puncture attempted and this was a dry spinal tap. This was done under fluoroscopy. The patient said it was painful and she does not want to have this done again. This was tried on the floor yesterday. A lumbar puncture and this was unsuccessful. No fluid could be aspirated. Therefore, it is likely that the patient had a dry spinal fluid. CLINICAL IMPRESSION: This patient had a single episode of vertigo lasting about a few minutes, but recurrent in about that one day only. There was no further prolongation and this went away up, and has not been present for the last 3 days. DIAGNOSES: Suspicious mainly of peripheral vestibular neuritis on the basis of mono positional nystagmus when looking to the right; however, I did not notice any adduction or abduction defect in either eye with movement. I believe that this nystagmus was related to a problem. Demyelinating disease is of course entertained. The patient had an MRI, but no contrast was given. RECOMMENDATION: Considering the above findings, I believe we should proceed with doing MRI of the brain without contrast and MRI of the cervical spine with and without contrast. Sixty minutes involved in the history and evaluation and more than 50% in the coordination of care and counseling. Thank you for this referral. JOB# [id number] RITO/JOVITA
--- NOTE | 2018-09-12 10:51 | Physician Progress Note ---
SUBJECTIVE: This patient was seen initially by Dr. Cadena suspected multiple sclerosis on the basis of the findings in the eye, possible internuclear ophthalmoplegia. I was called to clear the patient for discharge. On my examination, the patient was found to have nystagmus looking to the right side when she looks to the right and when she looks up, she has some mild nystagmus. This was questionable for internuclear ophthalmoplegia, but this was taken into consideration also. The patient was evaluated for possible inner ear problem. OBJECTIVE: Examination this time is unremarkable except for the nystagmus that I described above. Brain MRI with contrast was ordered to see whether there is any enhancement and this was negative. Cervical MRI with and without contrast was also done and this was unremarkable. There was a partially enhancing 1.5-2 cm nodule in the left thyroid lobe, thyroid gland. The patient has been symptomatic. The dizziness never came back. His examination is now completely normal. ASSESSMENT: I suspect that this patient has a labyrinthine dysfunction, which is very transient. I doubt that she has multiple sclerosis, but this could be diagnosis in the future. PLAN: The patient is being discharged to be followed up with her physicians, primarily to check her thyroid gland, check her ears and hopefully to follow up with the neurologist. The patient understood very well and she will check with her physicians. It is discussed with her attending doctor. [facility]# [id number] RITO/JOVITA
[2018-09-12 15:34] LABS: ANA Screen, IFA Negative (Negative)
== END 2018-09-11 16:48 | disposition home or self-care (01) | DRG 59 ==
LOC: ED 13:49 → 4A 23:59
PROVIDERS: ADMIT Internal Medicine; ATTEND Internal Medicine
PROC: 00JU3ZZ Inspection of Spinal Canal, Percutaneous Approach (ICD-10-PCS; principal; 2018-09-09)
DX: G35 Multiple sclerosis (principal); Z68.41 Body mass index [BMI] 40.0-44.9, adult; R11.2 Nausea with vomiting, unspecified; H81.10 Benign paroxysmal vertigo, unspecified ear; H55.09 Other forms of nystagmus; E86.0 Dehydration; E04.1 Nontoxic single thyroid nodule; H81.49 Vertigo of central origin, unspecified ear; E66.9 Obesity, unspecified
CPT/HCPCS: 36415; 62270; 70450; 70496; 70498; 70551; 70552; 72156; 76536; 77003; 80048; 80074; 81001; 83690; 84443; 84703; 85025; 85610; 85652; 85730; 86038; 86618; 93005; 93010; 96374; 96375; 99285; A9577; J1200; J1650; J2405; J2765; J7030; Q9967